=== PATIENT | male | born 1950 | race Caucasian/White ===

== ENCOUNTER 2019-12-27 05:36 | Inpatient (IN) ==
[2019-12-27] MEDS ORDERED: SODIUM CHLORIDE 0.9% 1000ML 1,000 ML IV SCH (06:00)
[2019-12-27 06:41] LABS: Basophils # (auto) 0.03 K/uL (0-0.2); Basophils % (auto) 0.1 %; Eosinophils # (auto) 0.07 K/uL (0-0.5); Eosinophils % (auto) 0.3 %; Hematocrit (blood only) 43.7 % (42-52); Immature Granulocytes # (auto) 0.06 K/uL (0.00-0.02); Immature Granulocytes % (auto) 0.3 %; Lymphocytes # (auto) 2.15 K/uL (1.2-3.4); Lymphocytes % (auto) 9.3 %; Mean Corpuscular Hemoglobin 31.3 pg (25-34); Mean Corpuscular Hgb Conc 34.3 g/dL (32-36); Mean Corpuscular Volume 91.2 fL (80-100); Mean Platelet Volume 9.1 fL (7.4-10.4); Monocytes # (auto) 2.22 K/uL (0.11-0.59); Monocytes % (auto) 9.6 %; Neutrophils # (auto) 18.58 K/uL (1.4-6.5); Neutrophils % (auto) 80.4 %; Platelet Count 307 K/uL (130-400); RDW Coefficient of Variation 13.9 % (11.5-14.5); RDW Standard Deviation 46.7 fL (36.4-46.3); Red Blood Count 4.79 M/uL (4.7-6.1); White Blood Count 23.11 K/uL (4.8-10.8)
[2019-12-27] MEDS ORDERED: AZITHROMYCIN 500 MG in DEXTROSE 5% 250 ML IV STA (06:49)
[2019-12-27] MEDS ORDERED: cefTRIAXone SODIUM 2,000 MG/70 ML BAG IV STA (06:49)
[2019-12-27 06:53] LABS: Partial Thromboplastin Time 29.1 Seconds (21.0-31.0); Prothrombin Time 10.9 Seconds (9.0-12.0)
[2019-12-27 06:58] LABS: Alanine Aminotransferase 39 U/L (12-78); Albumin Level 3.5 gm/dl (3.4-5.0); Aspartate Aminotransferase 20 U/L (15-37); BUN Creatinine Ratio 21.1 (10-20); Blood Urea Nitrogen 18 mg/dl (7-18); Calcium 9.1 mg/dl (8.5-10.1); Carbon Dioxide 28 mmol/L (21-32); Chloride 105 mmol/L (98-107); Creatinine Clr Calc Pharmacy 96.5 ml/min; Est GFR (African American) 102.1; Est GFR (Non-African American) 88.1; Glucose 123 mg/dl (70-99); Potassium 3.8 mmol/L (3.5-5.1); Sodium 139 mmol/L (136-145)
[2019-12-27 07:03] LABS: Albumin Globulin Ratio 0.8 (0.9-2); Alkaline Phosphatase 81 U/L (45-117); Bilirubin,Total 0.7 mg/dl (0.2-1); Globulin 4.2 gm/dl (2.5-4.0); Total Protein 7.7 gm/dl (6.4-8.2); Troponin I < 0.015 ng/ml (0-0.045)
[2019-12-27 07:28] LABS: Influenza A virus by PCR Neg for Influ A (Neg); Influenza B virus by PCR Neg for Influ B (Neg)
--- NOTE | 2019-12-27 07:30 | XRay Report ---
XR chest 1V portable CLINICAL HISTORY: SEPSIS COMPARISON STUDY: No previous studies for comparison. FINDINGS: The heart is enlarged. There is blunting of the left lateral costophrenic angle possibly re presenting a small effusion. There is mild pulmonary vascular congestion. There are airspace opacitie s in the right lung base, possibly representing a focal pneumonia. Clinical and radiographic follow-u p is recommended.[ IMPRESSION: 1. Cardiomegaly and suspected mild pulmonary vascular congestion 2. Right medial basilar airspace opacities, possibly representing a pneumonitis. Clinical and radiogr aphic follow-up is recommended. ACT 112: Negative or not required by law. Electronically signed by: Mario Alberto Latham M.D. 12/27/2019 7:29 AM
--- NOTE | 2019-12-27 07:49 | Emergency Department Note ---
History of Present Illness General Chief complaint: Fever Stated complaint: FEVER Time Seen by Provider: 12/27/19 05:48 Source: patient and RN notes reviewed Mode of arrival: ambulatory Limitations: no limitations History of Present Illness Provider complaint: Fever, cough Maximum Pain Intensity: 0 This patient is a 69-year-old male who presents emergency department with complaints of fever and cough. He states 4 days ago he began coughing which has been progressive. Last night he developed a fever to 101.5 degrees with chills. He denies any vomiting, chest pain but does admit to some shortness of breath. The cough is relatively nonproductive. Patient states he has had no known COVID exposures however he is a business planning manager for school students. Patient did take Tylenol at 11 PM last night. Patient states his was sick approximately 1 month ago and was tested for COVID at that time and was negative, but is currently asymptomatic Allergies Allergy/AdvReac Type Severity Reaction Status Date / Time No Known Allergies Allergy Unverified 12/27/19 07:12 Past Med/Surg History Medical History Hypercholesterolemia Social History Smoking Status: Current every day smoker Tobacco Type: Pipe Preferred Language: Maldivian Feels Safe at Home: Yes Review of Systems See HPI for pertinent positives & negatives. and A total of 10 systems reviewed and were otherwise negative Physical Exam Vital Signs Vital Signs - 24 hr 12/27/19 05:38 12/27/19 06:37 Temperature 37.2 C Temperature Source Oral Pulse Rate 75 Respiratory Rate 18 Respiratory Effort / Characteristics Non-Labored Respiratory Depth Normal Respiratory Pattern Regular Blood Pressure 181/86 H Blood Pressure Mean 117 Pulse Oximetry 98 98 Oxygen Delivery Method Room Air Room Air Sepsis Recent Fever Within 48 Hours Yes Sepsis New/Unexplained Change in Mental Status No Sepsis Action Taken by Nursing No Action Required Vital signs reviewed. Noted to be hypertensive. General: Somewhat ill-appearing 69 yo male, in no significant distress. HEENT: No scleral icterus, PERRLA, neck supple. Atraumatic. Cardiovascular: Regular rate and rhythm, no extra sounds. Pulmonary: Clear to auscultation bilaterally, normal work of breathing. Abdomen: Soft, nontender, nondistended, positive bowel sounds. Musculoskeletal: Atraumatic, no peripheral edema. Neurologic: Patient awake alert and oriented x 3 Skin: Warm, dry, no rash Course Administered Medications Discontinued Medications Sodium Chloride (Nss 1000ml) 1,000 mls @ 999 mls/hr IV .[id number] NICK Stop: 12/27/19 07:00 Last Admin: 12/27/19 06:42 Dose: 999 mls/hr Documented by: [id number] Ceftriaxone Sodium (Rocephin) 2,000 mg in 70 mls @ 140 mls/hr IV NOW STA Stop: 12/27/19 07:18 Last Admin: 12/27/19 07:12 Dose: 140 mls/hr Documented by: [id number] Medical Decision Making Differential Diagnosis Differential diagnosis: Etiologies such as viral syndrome, COVID, otitis, pharyngitis, pneumonia, influenza, meningitis, urinary tract infection, septic arthritis, soft tissue infectious process, intra-abdominal process, sepsis, bacteremia, as well as others were entertained. Medical Records Attestation: I reviewed the patient's medical records. Home Medications Current Medication List: was personally reviewed by me Laboratory Data Attestation: I reviewed the patient's lab results. Result diagrams: 12/27/19 06:21 12/27/19 06:21 Lab Results 12/27/19 12/27/19 12/27/19 Range/Units 06:21 06:21 06:21 WBC 23.11 H (4.8-10.8) K/uL RBC 4.79 (4.7-6.1) M/uL Hgb 15.0 (14.0-18.0) g/dL Hct 43.7 (42-52) % MCV 91.2 (80-100) fL MCH 31.3 (25-34) pg MCHC 34.3 (32-36) g/dL RDW Std Deviation 46.7 H (36.4-46.3) fL RDW Coeff of Tulio 13.9 (11.5-14.5) % Plt Count 307 (130-400) K/uL MPV 9.1 (7.4-10.4) fL Immature Gran % (Auto) 0.3 % Neut % (Auto) 80.4 % Lymph % (Auto) 9.3 % [place] % (Auto) 9.6 % Eos % (Auto) 0.3 % Baso % (Auto) 0.1 % Neut # (Auto) 18.58 H (1.4-6.5) K/uL Lymph # (Auto) 2.15 (1.2-3.4) K/uL [place] # (Auto) 2.22 H (0.11-0.59) K/uL Eos # (Auto) 0.07 (0-0.5) K/uL Baso # (Auto) 0.03 (0-0.2) K/uL Immature Gran # (Auto) 0.06 H (0.00-0.02) K/uL PT 10.9 (9.0-12.0) Seconds INR 1.0 (0.9-1.1) APTT 29.1 (21.0-31.0) Seconds PTT Ratio 1.0 Sodium 139 (136-145) mmol/L Potassium 3.8 (3.5-5.1) mmol/L Chloride 105 (98-107) mmol/L Carbon Dioxide 28 (21-32) mmol/L Anion Gap 6.0 (3-11) BUN 18 (7-18) mg/dl Creatinine 0.87 (0.6-1.4) mg/dl Est Cr Clr Drug Dosing 96.5 ml/min Est GFR ( Amer) 102.1 Est GFR (Non-Af Amer) 88.1 BUN/Creatinine Ratio 21.1 H (10-20) Glucose 123 H (70-99) mg/dl Lactate (0.4-2.0) mmol/L Calcium 9.1 (8.5-10.1) mg/dl Magnesium 2.0 (1.8-2.4) mg/dl Total Bilirubin 0.7 (0.2-1) mg/dl AST 20 (15-37) U/L ALT 39 (12-78) U/L Alkaline Phosphatase 81 (45-117) U/L Troponin I < 0.015 (0-0.045) ng/ml Total Protein 7.7 (6.4-8.2) gm/dl Albumin 3.5 (3.4-5.0) gm/dl Globulin 4.2 H (2.5-4.0) gm/dl Albumin/Globulin Ratio 0.8 L (0.9-2) COVID-19 Eval Order COVID-19 PCR (Negative) Influenza Type A (PCR) (Neg) Influenza Type B (PCR) (Neg) 12/27/19 12/27/19 12/27/19 Range/Units 06:21 06:37 06:37 WBC (4.8-10.8) K/uL RBC (4.7-6.1) M/uL Hgb (14.0-18.0) g/dL Hct (42-52) % MCV (80-100) fL MCH (25-34) pg MCHC (32-36) g/dL RDW Std Deviation (36.4-46.3) fL RDW Coeff of Tulio (11.5-14.5) % Plt Count (130-400) K/uL MPV (7.4-10.4) fL Immature Gran % (Auto) % Neut % (Auto) % Lymph % (Auto) % [place] % (Auto) % Eos % (Auto) % Baso % (Auto) % Neut # (Auto) (1.4-6.5) K/uL Lymph # (Auto) (1.2-3.4) K/uL [place] # (Auto) (0.11-0.59) K/uL Eos # (Auto) (0-0.5) K/uL Baso # (Auto) (0-0.2) K/uL Immature Gran # (Auto) (0.00-0.02) K/uL PT (9.0-12.0) Seconds INR (0.9-1.1) APTT (21.0-31.0) Seconds PTT Ratio Sodium (136-145) mmol/L Potassium (3.5-5.1) mmol/L Chloride (98-107) mmol/L Carbon Dioxide (21-32) mmol/L Anion Gap (3-11) BUN (7-18) mg/dl Creatinine (0.6-1.4) mg/dl Est Cr Clr Drug Dosing ml/min Est GFR ( Amer) Est GFR (Non-Af Amer) BUN/Creatinine Ratio (10-20) Glucose (70-99) mg/dl Lactate 2.2 H* (0.4-2.0) mmol/L Calcium (8.5-10.1) mg/dl Magnesium (1.8-2.4) mg/dl Total Bilirubin (0.2-1) mg/dl AST (15-37) U/L ALT (12-78) U/L Alkaline Phosphatase (45-117) U/L Troponin I (0-0.045) ng/ml Total Protein (6.4-8.2) gm/dl Albumin (3.4-5.0) gm/dl Globulin (2.5-4.0) gm/dl Albumin/Globulin Ratio (0.9-2) COVID-19 Eval Order Covid19 Done at [facility] COVID-19 PCR (Negative) Influenza Type A (PCR) Neg for Influ A (Neg) Influenza Type B (PCR) Neg for Influ B (Neg) 12/27/19 Range/Units 06:37 WBC (4.8-10.8) K/uL RBC (4.7-6.1) M/uL Hgb (14.0-18.0) g/dL Hct (42-52) % MCV (80-100) fL MCH (25-34) pg MCHC (32-36) g/dL RDW Std Deviation (36.4-46.3) fL RDW Coeff of Tulio (11.5-14.5) % Plt Count (130-400) K/uL MPV (7.4-10.4) fL Immature Gran % (Auto) % Neut % (Auto) % Lymph % (Auto) % [place] % (Auto) % Eos % (Auto) % Baso % (Auto) % Neut # (Auto) (1.4-6.5) K/uL Lymph # (Auto) (1.2-3.4) K/uL [place] # (Auto) (0.11-0.59) K/uL Eos # (Auto) (0-0.5) K/uL Baso # (Auto) (0-0.2) K/uL Immature Gran # (Auto) (0.00-0.02) K/uL PT (9.0-12.0) Seconds INR (0.9-1.1) APTT (21.0-31.0) Seconds PTT Ratio Sodium (136-145) mmol/L Potassium (3.5-5.1) mmol/L Chloride (98-107) mmol/L Carbon Dioxide (21-32) mmol/L Anion Gap (3-11) BUN (7-18) mg/dl Creatinine (0.6-1.4) mg/dl Est Cr Clr Drug Dosing ml/min Est GFR ( Amer) Est GFR (Non-Af Amer) BUN/Creatinine Ratio (10-20) Glucose (70-99) mg/dl Lactate (0.4-2.0) mmol/L Calcium (8.5-10.1) mg/dl Magnesium (1.8-2.4) mg/dl Total Bilirubin (0.2-1) mg/dl AST (15-37) U/L ALT (12-78) U/L Alkaline Phosphatase (45-117) U/L Troponin I (0-0.045) ng/ml Total Protein (6.4-8.2) gm/dl Albumin (3.4-5.0) gm/dl Globulin (2.5-4.0) gm/dl Albumin/Globulin Ratio (0.9-2) COVID-19 Eval Order COVID-19 PCR NEGATIVE (Negative) Influenza Type A (PCR) (Neg) Influenza Type B (PCR) (Neg) Imaging Data Radiologist's Impression: XR chest 1V portable CLINICAL HISTORY: SEPSIS COMPARISON STUDY: No previous studies for comparison. FINDINGS: The heart is enlarged. There is blunting of the left lateral costophrenic angle possibly representing a small effusion. There is mild pulmonary vascular congestion. There are airspace opacities in the right lung base, possibly representing a focal pneumonia. Clinical and radiographic follow- up is recommended.[ IMPRESSION: 1. Cardiomegaly and suspected mild pulmonary vascular congestion 2. Right medial basilar airspace opacities, possibly representing a pneumonitis. Clinical and radiographic follow-up is recommended. ACT 112: Negative or not required by law. Electronically signed by: Mario Alberto Latham M.D. 12/27/2019 7:29 AM ECG Data Attestation: I personally reviewed and interpreted this ECG as follows: Indication: + SOB/dyspnea Rate (beats per minute): 73 Rhythm: + normal sinus ECG Intervals/blocks: + Right Bundle branch block and + Normal QT-c ECG ST segments: + Normal ST segments and + repolarization abnormalities ECG Findings: no PACs and no PVCs Blood Pressure Blood Pressure Findings: Elevated blood pressure Blood Pressure Disposition: further management by hospitalist EITAN Narrative This patient was evaluated and appeared to be in no significant distress. IV access was obtained and laboratory work was drawn. An order for cardiac monitoring was placed and the patient is noted to be in a normal sinus rhythm at 73 bpm. IV fluids were established. Blood cultures were drawn. Patient was placed in isolation with a rapid COVID test requested. Chest x-ray reveals b ilateral pulmonary infiltrates to my interpretation. EKG reveals a right bundle branch block. Patient was medicated with IV ceftriaxone and a azithromycin. Patient's case was discussed with the hospitalist service who will evaluate the patient for admission and further management. Patient is aware of the plan and agrees. Impression & Plan Pneumonia, Elevated lactic acid level Discharge Plan Visit Data Chief Complaint: Fever Stated Complaint: FEVER ED Provider: Elle Bass Discharge Problem: Pneumonia, Elevated lactic acid level Forms Stand Alone Forms: [facility] Discharge Problem: Pneumonia Qualifiers: Pneumonia type: due to unspecified organism Laterality: bilateral Lung location: lower lobe of lung Qualified Code(s): J18.9 - Pneumonia, unspecified organism
--- NOTE | 2019-12-27 08:25 | History & Physical Report ---
Date of Service December 27, 2019 Assessment & Plan (1) Pneumonia: Clinical history, leukocytosis, chest x-ray consistent with pneumonia, community acquired. Did not meet criteria for SIRS / sepsis per current CMS criteria. SARS-CoV-2 PCR and influenza A/B PCR negative. Blood cultures obtained in ED. Check sputum culture if adequate specimen can be provided. Received azithromycin and ceftriaxone which will be continued. (2) COPD exacerbation: Secondary to pneumonia. Bronchodilators PRN. Add steroids if needed. (3) Elevated lactic acid level: Serum lactate 2.2, repeat 2.1. Has infection (pneumonia) but does not meet strict criteria for sepsis per current CMS criteria. (4) Hypertension: Amlodipine listed on admission med rec, but could not be confirmed by review of clinic records, Dr. Dominguez database, or discussion with pt's pharmacy. Continue valsartan. Follow and titrate Rx. (5) Sleep apnea: Continue CPAP. (6) DVT prophylaxis: SQ enoxaparin. Ambulate. (7) Discharge planning issues: Anticipated discharge to home. Medical follow-up with Dr. Donahue. Pulmonary Medicine follow-up with [facility]. History of Present Illness Chief Complaint: fever, cough, SOB Primary Care Provider: Alize Donahue DO 69 YO male followed by Dr. Murry in [place]. History of obstructive lung disease (asthma + COPD) and other problems as noted below. [place] well until 4 days prior to admission when he developed fever and cough. Symptoms worsened over past 24 hours. Now experiencing chills, malaise, worsening cough and dyspnea. Has some chest and left should discomfort with coughing. Tried acetaminophen and albuterol without significant improvement. No recent travel history. Drives school bus. No known COVID-19 exposure. He has had pneumococcal vaccination. He has not yet had influenza vaccination this season. Allergies Allergy/AdvReac Type Severity Reaction Status Date / Time No Known Allergies Allergy Unverified 12/27/19 07:12 Home Medications Home Medications Medication Instructions Recorded Confirmed Type acetaminophen [Tylenol] 325 mg PO QID PRN 12/27/19 12/27/19 History albuterol sulfate 2 puff INHALATION Q4H PRN 12/27/19 12/27/19 History atorvastatin 20 mg PO DAILY 12/27/19 12/27/19 History ipratropium-albuterol [Combivent 1 puff INHALATION DAILY 12/27/19 12/27/19 History Respimat] multivitamin 1 tab PO DAILY 12/27/19 12/27/19 History valsartan 80 mg PO DAILY 12/27/19 12/27/19 History Past Med/Surg History Medical History (Updated 12/27/19 @ 12:24 by Curly Quigley MD) Asthma COPD (chronic obstructive pulmonary disease) Hypercholesterolemia Hypertension Sleep apnea CPAP 7 cm Surgical History (Updated 12/27/19 @ 12:24 by Curly Quigley MD) Status post arthroscopy of left knee Status post hernia repair Status post nasal septoplasty Family History (Updated 12/27/19 @ 12:28 by Curly Quigley MD) Father Coronary heart disease Mother Stroke Cancer of uterus Grandfather (Maternal) Coronary heart disease Grandmother (Maternal) Coronary heart disease Brother Lung cancer Son Brain tumor Social History Smoking Status: Current every day smoker Tobacco Type: Pipe Second Hand Exposure: No; Do You Dip or Chew Tobacco: No; Tobacco Cessation Education Requested by Patient: No (declined) Hx Alcohol Use: No Hx Substance Use: No Preferred Language: Polish Dental Internship Required: No Beliefs That Will Affect Care: None Current Living Situation: Spouse Current Living Situation Comment: home with Other Information That Helps Us Care for You: No Feels Safe at Home: Yes Safety Concerns: Feels Safe At This Time Assistive Devices: None Review of Systems Constitutional: + fever, + chills and + malaise; no weight loss Eyes: no diplopia and no worsening vision Ear, Nose, Mouth, Throat: + nasal congestion; no sinus pain/pressure and no sore throat Respiratory: as per Subjective / HPI Cardiovascular: no chest pain, no palpitations and no edema Gastrointestinal: no nausea, no vomiting, no constipation, no diarrhea/loose stools, no blood in stools and no melena Musculoskeletal: + joint pain; no myalgia Integumentary: no rash and no new lesions Neurologic: no headache(s) Endocrine: no polydipsia and no polyuria Hematologic / Lymphatic: + easy bruising; no easy bleeding and no lymphadenopathy Physical Exam Physical Exam: VS- as noted Constitutional- well nourished; appear to be ill Eyes- PERRL, anicteric sclerae, conjunctivae normal ENMT- external ear and nose normal; oropharynx clear; dentures Neck- trachea midline; no thyromegaly Respiratory- no respiratory distress; rales right base; mild wheezing Cardiovascular- RRR, no murmur/gallop/rub appreciated; no JVD; no pretibial edema; normal capillary refill Chest- no abnormalities Abdomen- normal bowel sounds, soft, nontender, nondistended; no palpable masses or hepatosplenomegaly Musculoskeletal- no cyanosis Skin- warm & dry; normal color; no rashes Neurologic- no facial palsy; no dysarthria or aphasia; motor strength extremities grossly intact; patellar DTR's 2/2 bilaterally Psychiatric- alert, oriented x 3; normal affect Genitourinary- exam deferred Lymphatic- no cervical adenopathy Results & Data Results & Data ([facility]) Vital Signs (Past 12 Hours) Vital Signs 12/27/19 05:38 12/27/19 06:37 12/27/19 07:59 Temperature 37.2 C 37.5 C Pulse Rate 75 Pulse Rate [Apical] 69 Respiratory Rate 18 14 Blood Pressure 181/86 H Blood Pressure [Right Arm] 149/72 H Pulse Oximetry 98 98 95 12/27/19 09:25 12/27/19 11:02 12/27/19 12:03 Temperature 37.1 C 36.5 C Pulse Rate Pulse Rate [Apical] 76 80 55 L Respiratory Rate 20 20 20 Blood Pressure Blood Pressure [Right Arm] 154/78 H 161/68 H 147/65 H Pulse Oximetry 95 95 96 Laboratory Results Laboratory Results - last 24 hr 12/27/19 12/27/19 12/27/19 06:21 06:21 06:21 WBC 23.11 H RBC 4.79 Hgb 15.0 Hct 43.7 MCV 91.2 MCH 31.3 MCHC 34.3 RDW Std Deviation 46.7 H RDW Coeff of Tulio 13.9 Plt Count 307 MPV 9.1 Immature Gran % (Auto) 0.3 Neut % (Auto) 80.4 Lymph % (Auto) 9.3 [place] % (Auto) 9.6 Eos % (Auto) 0.3 Baso % (Auto) 0.1 Neut # (Auto) 18.58 H Lymph # (Auto) 2.15 [place] # (Auto) 2.22 H Eos # (Auto) 0.07 Baso # (Auto) 0.03 Immature Gran # (Auto) 0.06 H PT 10.9 INR 1.0 APTT 29.1 PTT Ratio 1.0 Sodium 139 Potassium 3.8 Chloride 105 Carbon Dioxide 28 Anion Gap 6.0 BUN 18 Creatinine 0.87 Est Cr Clr Drug Dosing 96.5 Est GFR ( Amer) 102.1 Est GFR (Non-Af Amer) 88.1 BUN/Creatinine Ratio 21.1 H Glucose 123 H Lactate Calcium 9.1 Magnesium 2.0 Total Bilirubin 0.7 AST 20 ALT 39 Alkaline Phosphatase 81 Troponin I < 0.015 NT-Pro-B Natriuret Pep Total Protein 7.7 Albumin 3.5 Globulin 4.2 H Albumin/Globulin Ratio 0.8 L Urine Color Urine Appearance Urine pH Ur Specific [place] Urine Protein Urine Glucose (UA) Urine Ketones Urine Blood Urine Nitrite Urine Bilirubin Urine Urobilinogen Ur Leukocyte Esterase COVID-19 Eval Order COVID-19 PCR Influenza Type A (PCR) Influenza Type B (PCR) 12/27/19 12/27/19 12/27/19 06:21 06:37 06:37 WBC RBC Hgb Hct MCV MCH MCHC RDW Std Deviation RDW Coeff of Tulio Plt Count MPV Immature Gran % (Auto) Neut % (Auto) Lymph % (Auto) [place] % (Auto) Eos % (Auto) Baso % (Auto) Neut # (Auto) Lymph # (Auto) [place] # (Auto) Eos # (Auto) Baso # (Auto) Immature Gran # (Auto) PT INR APTT PTT Ratio Sodium Potassium Chloride Carbon Dioxide Anion Gap BUN Creatinine Est Cr Clr Drug Dosing Est GFR ( Amer) Est GFR (Non-Af Amer) BUN/Creatinine Ratio Glucose Lactate 2.2 H* Calcium Magnesium Total Bilirubin AST ALT Alkaline Phosphatase Troponin I NT-Pro-B Natriuret Pep Total Protein Albumin Globulin Albumin/Globulin Ratio Urine Color Urine Appearance Urine pH Ur Specific [place] Urine Protein Urine Glucose (UA) Urine Ketones Urine Blood Urine Nitrite Urine Bilirubin Urine Urobilinogen Ur Leukocyte Esterase COVID-19 Eval Order Covid19 Done at [facility] COVID-19 PCR Influenza Type A (PCR) Neg for Influ A Influenza Type B (PCR) Neg for Influ B 12/27/19 12/27/19 12/27/19 06:37 08:31 08:32 WBC RBC Hgb Hct MCV MCH MCHC RDW Std Deviation RDW Coeff of Tulio Plt Count MPV Immature Gran % (Auto) Neut % (Auto) Lymph % (Auto) [place] % (Auto) Eos % (Auto) Baso % (Auto) Neut # (Auto) Lymph # (Auto) [place] # (Auto) Eos # (Auto) Baso # (Auto) Immature Gran # (Auto) PT INR APTT PTT Ratio Sodium Potassium Chloride Carbon Dioxide Anion Gap BUN Creatinine Est Cr Clr Drug Dosing Est GFR ( Amer) Est GFR (Non-Af Amer) BUN/Creatinine Ratio Glucose Lactate 2.1 H* Calcium Magnesium Total Bilirubin AST ALT Alkaline Phosphatase Troponin I NT-Pro-B Natriuret Pep 117 Total Protein Albumin Globulin Albumin/Globulin Ratio Urine Color Urine Appearance Urine pH Ur Specific [place] Urine Protein Urine Glucose (UA) Urine Ketones Urine Blood Urine Nitrite Urine Bilirubin Urine Urobilinogen Ur Leukocyte Esterase COVID-19 Eval Order COVID-19 PCR NEGATIVE Influenza Type A (PCR) Influenza Type B (PCR) 12/27/19 09:40 WBC RBC Hgb Hct MCV MCH MCHC RDW Std Deviation RDW Coeff of Tulio Plt Count MPV Immature Gran % (Auto) Neut % (Auto) Lymph % (Auto) [place] % (Auto) Eos % (Auto) Baso % (Auto) Neut # (Auto) Lymph # (Auto) [place] # (Auto) Eos # (Auto) Baso # (Auto) Immature Gran # (Auto) PT INR APTT PTT Ratio Sodium Potassium Chloride Carbon Dioxide Anion Gap BUN Creatinine Est Cr Clr Drug Dosing Est GFR ( Amer) Est GFR (Non-Af Amer) BUN/Creatinine Ratio Glucose Lactate Calcium Magnesium Total Bilirubin AST ALT Alkaline Phosphatase Troponin I NT-Pro-B Natriuret Pep Total Protein Albumin Globulin Albumin/Globulin Ratio Urine Color Yellow Urine Appearance Clear Urine pH 6.0 Ur Specific [place] 1.022 Urine Protein Negative Urine Glucose (UA) Negative Urine Ketones Negative Urine Blood Negative Urine Nitrite Negative Urine Bilirubin Negative Urine Urobilinogen Negative Ur Leukocyte Esterase Negative COVID-19 Eval Order COVID-19 PCR Influenza Type A (PCR) Influenza Type B (PCR) Diagnostic Findings PORTABLE CHEST X-RAY Reviewed by the undersigned and formally interpreted by Radiology: FINDINGS: The heart is enlarged. There is blunting of the left lateral costophrenic angle possibly representing a small effusion. There is mild pulmonary vascular congestion. There are airspace opacities in the right lung base, possibly representing a focal pneumonia. Clinical and radiographic follow-up is recommended.[ IMPRESSION: 1. Cardiomegaly and suspected mild pulmonary vascular congestion 2. Right medial basilar airspace opacities, possibly representing a pneumonitis. Clinical and radiographic follow-up is recommended. Electronically signed by: Mario Alberto Latham M.D. 12/27/2019 7:29 AM ECG Additional Comments: EKG performed at 0603 reviewed and demonstrated NSR at 73 / min, right bundle branch block, no acute changes. Code Status & VTE Plan Code Status Discussed with patient and his . No living will. Full code. VTE Prophylaxis Plan VTE Prophylaxis will be ordered: Yes (1) Pneumonia Laterality: bilateral Lung location: lower lobe of lung Pneumonia type: due to unspecified organism Qualified Code(s): J18.9 - Pneumonia, unspecified organism
[2019-12-27 10:12] LABS: Appearance Urine Clear (Clear); Bilirubin Urine Negative (Negative); Blood Urine Negative (Negative); Color Urine Yellow; Glucose Urine UA Negative (Negative); Ketones Urine Negative (Negative); Leukocyte Esterase Urine Negative (Negative); Nitrite Urine Negative (Negative); Protein Urine Negative (Negative); Specific Gravity Urine 1.022 (1.000-1.030); Urobilinogen Urine Negative (Negative)
[2019-12-27] MEDS: SODIUM CHLORIDE 0.9% 1000ML 1,000 ML IV SCH ×3 (10:28→20:56)
[2019-12-27] MEDS ORDERED: ALBUTEROL HFA 8 GM INHALER INH PRN (12:07)
[2019-12-27] MEDS ORDERED: IPRATROPIUM BROMIDE/ALBUTEROL respimat INH INH SCH (12:07)
[2019-12-27] MEDS ORDERED: ACETAMINOPHEN 325 MG TAB PO PRN (12:30)
[2019-12-27] MEDS: IPRATROPIUM BROMIDE HFA INHALER INH SCH (12:55)
[2019-12-27] MEDS: ALBUTEROL HFA 8 GM INHALER INH SCH (12:55)
[2019-12-27] MEDS ORDERED: ALBUTEROL 0.083% NEBU SOLN 3 ML VIAL NEB PRN (13:10)
[2019-12-27] MEDS: ATORVASTATIN 20 MG TAB PO SCH (13:50)
[2019-12-27] MEDS: VALSARTAN 80 MG TAB PO SCH (13:50)
[2019-12-27] MEDS: ENOXAPARIN INJ 40 MG/0.4 ML SYR SQ SCH (22:01)
[2019-12-28] MEDS: SODIUM CHLORIDE 0.9% 1000ML 1,000 ML IV SCH ×3 (03:34→17:12)
[2019-12-28] MEDS: cefTRIAXone SODIUM 2,000 MG in DEXTROSE 5% 50 ML IV SCH ×2 (05:30→05:33)
--- NOTE | 2019-12-28 05:42 | Electrocardiogram Report ---
Test Reason : Blood Pressure : / mmHG Vent. Rate : 073 BPM Atrial Rate : 073 BPM P-R Int : 184 ms QRS Dur : 132 ms QT Int : 406 ms P-R-T Axes : 061 037 021 degrees QTc Int : 447 ms Normal sinus rhythm Right bundle branch block Abnormal ECG No previous ECGs available Confirmed by George Lorenzo [id number] on 12/28/2019 5:41:49 AM Referred By: REFERRED SELF Confirmed By:George Lorenzo
[2019-12-28] MEDS ORDERED: LEVALBUTEROL HCL 0.63 MG/3 ML NEB NEB PRN (07:03)
[2019-12-28] MEDS: ALBUTEROL HFA 8 GM INHALER INH SCH (07:16)
[2019-12-28] MEDS: IPRATROPIUM BROMIDE HFA INHALER INH SCH (07:16)
[2019-12-28 07:25] LABS: Basophils # (auto) 0.03 K/uL (0-0.2); Basophils % (auto) 0.2 %; Eosinophils # (auto) 0.08 K/uL (0-0.5); Eosinophils % (auto) 0.5 %; Hematocrit (blood only) 39.2 % (42-52); Hemoglobin 13.3 g/dL (14.0-18.0); Immature Granulocytes # (auto) 0.04 K/uL (0.00-0.02); Immature Granulocytes % (auto) 0.2 %; Lymphocytes # (auto) 4.01 K/uL (1.2-3.4); Lymphocytes % (auto) 23.7 %; Mean Corpuscular Hemoglobin 30.6 pg (25-34); Mean Corpuscular Hgb Conc 33.9 g/dL (32-36); Mean Corpuscular Volume 90.1 fL (80-100); Mean Platelet Volume 8.8 fL (7.4-10.4); Monocytes # (auto) 1.72 K/uL (0.11-0.59); Monocytes % (auto) 10.2 %; Neutrophils # (auto) 11.01 K/uL (1.4-6.5); Neutrophils % (auto) 65.2 %; Platelet Count 265 K/uL (130-400); RDW Coefficient of Variation 13.6 % (11.5-14.5); RDW Standard Deviation 45.1 fL (36.4-46.3); Red Blood Count 4.35 M/uL (4.7-6.1); White Blood Count 16.89 K/uL (4.8-10.8)
[2019-12-28 07:53] LABS: Calcium 8.6 mg/dl (8.5-10.1); Creatinine Clr Calc Pharmacy 118.3 ml/min; Est GFR (Non-African American) 95.7; Magnesium 2.2 mg/dl (1.8-2.4); Potassium 3.8 mmol/L (3.5-5.1)
[2019-12-28] MEDS: VALSARTAN 80 MG TAB PO SCH (08:29)
[2019-12-28] MEDS: AZITHROMYCIN 250 MG TAB PO SCH (08:29)
[2019-12-28] MEDS: ATORVASTATIN 20 MG TAB PO SCH (08:29)
--- NOTE | 2019-12-28 10:50 | Cardiology Consultation ---
Date of Consultation December 28, 2019 Assessment & Plan (1) PAF (paroxysmal atrial fibrillation): (2) Pneumonia: (3) COPD exacerbation: This patient had one very brief episode of atrial fibrillation in the setting of pneumonia. He has no significant cardiac history. Although his David Vascor is 2, I believe in this setting the risk versus benefit of long-term anticoagulation would favor conservative management with aspirin only. I will obtain an echocardiogram which will be helpful in this setting. For now I believe the patient is okay on DVT prophylaxis and aspirin. History of Present Illness Attending Physician: Curly Quigley MD History of Present Illness This is a 69-year-old male patient with a history of COPD, mild essential hypertension and sleep apnea who has been admitted with pneumonia. He has no prior history of heart disease. He denies myocardial infarction, angina, congestive heart failure or cardiac arrhythmias. He also has no prior history of strokes. After admission he had one very brief episode of rate controlled atrial fibrillation but lasted for approximately an hour or 2 and then he returned to sinus rhythm. He is currently in sinus rhythm during my interview today. He has no ongoing cardiac complaints. After hospital admission he is feeling much improved. Allergies Allergy/AdvReac Type Severity Reaction Status Date / Time No Known Allergies Allergy Unverified 12/27/19 07:12 Home Medications Home Medications Medication Instructions Recorded Confirmed Type acetaminophen [Tylenol] 325 mg PO QID PRN 12/27/19 12/27/19 History albuterol sulfate 2 puff INHALATION Q4H PRN 12/27/19 12/27/19 History atorvastatin 20 mg PO DAILY 12/27/19 12/27/19 History ipratropium-albuterol [Combivent 1 puff INHALATION DAILY 12/27/19 12/27/19 History Respimat] multivitamin 1 tab PO DAILY 12/27/19 12/27/19 History valsartan 80 mg PO DAILY 12/27/19 12/27/19 History Patient History Medical History Asthma COPD (chronic obstructive pulmonary disease) Hypercholesterolemia Hypertension Sleep apnea CPAP 7 cm Surgical History Status post arthroscopy of left knee Status post hernia repair Status post nasal septoplasty Family History Father Coronary heart disease Mother Stroke Cancer of uterus Grandfather (Maternal) Coronary heart disease Grandmother (Maternal) Coronary heart disease Brother Lung cancer Son Brain tumor Social History Smoking Status: Current every day smoker Tobacco Type: Pipe Second Hand Exposure: No; Do You Dip or Chew Tobacco: No; Tobacco Cessation Education Requested by Patient: No (declined) Hx Alcohol Use: No Hx Substance Use: No Preferred Language: [employer] Test Technician Required: No Beliefs That Will Affect Care: None Current Living Situation: Spouse Current Living Situation Comment: home with Other Information That Helps Us Care for You: No Feels Safe at Home: Yes Safety Concerns: Feels Safe At This Time Assistive Devices: None Review of Systems Review of Systems: All systems reviewed & are unremarkable except as noted in HPI & below Nothing additional to add. Physical Exam Physical Exam: General: no acute distress and stated age Head: normocephalic, no masses, lesions, tenderness or abnormalities Eyes: conjunctiva are pink and non-injected, sclera clear Neck: supple, no adenopathy, no bruits, normal jugular venous pulse, no hepatojugular reflux Chest: normal shape and normal respiratory effort Lungs: clear to auscultation and percussion Cardiac Exam: - regular rate & rhythm, no murmurs gallops or rubs - normal S1, normal S2 Pulses: 2(+) throughout Abdomen: abdomen soft, non-tender, no abnormal masses and no hepatosplenomegaly Musculoskeletal: no gait disturbance, no joint inflammation, no deforming arthritis Extremities: no edema and no cyanosis Neuro: grossly normal exam Results & Data ([facility]) Vital Signs (Past 12 Hours) Vital Signs Temp Pulse Pulse Resp BP Pulse Ox 12/28/19 09:23 65 12/28/19 08:07 36.7 C 61 18 153/89 H 94 12/28/19 07:19 61 18 94 12/28/19 04:26 36.4 C L 99/60 L 12/28/19 04:00 37.6 C H 71 18 165/74 H 92 12/28/19 03:39 62 16 90 12/28/19 00:32 82 Laboratory Results Laboratory Results - last 24 hr 12/28/19 12/28/1912/27/20 07:11 07:11 07:11 WBC 16.89 H RBC 4.35 L Hgb 13.3 L Hct 39.2 L MCV 90.1 MCH 30.6 MCHC 33.9 RDW Std Deviation 45.1 RDW Coeff of Tulio 13.6 Plt Count 265 MPV 8.8 Immature Gran % (Auto) 0.2 Neut % (Auto) 65.2 Lymph % (Auto) 23.7 [place] % (Auto) 10.2 Eos % (Auto) 0.5 Baso % (Auto) 0.2 Neut # (Auto) 11.01 H Lymph # (Auto) 4.01 H [place] # (Auto) 1.72 H Eos # (Auto) 0.08 Baso # (Auto) 0.03 Immature Gran # (Auto) 0.04 H Sodium Cancelled Potassium Cancelled Chloride Cancelled Carbon Dioxide Cancelled Anion Gap Cancelled BUN Cancelled Creatinine Cancelled Est Cr Clr Drug Dosing Cancelled Est GFR ( Amer) Cancelled Est GFR (Non-Af Amer) Cancelled BUN/Creatinine Ratio Cancelled Glucose Cancelled Lactate Calcium Cancelled Magnesium Procalcitonin 0.15 12/28/19 12/28/19 07:11 07:11 WBC RBC Hgb Hct MCV MCH MCHC RDW Std Deviation RDW Coeff of Tulio Plt Count MPV Immature Gran % (Auto) Neut % (Auto) Lymph % (Auto) [place] % (Auto) Eos % (Auto) Baso % (Auto) Neut # (Auto) Lymph # (Auto) [place] # (Auto) Eos # (Auto) Baso # (Auto) Immature Gran # (Auto) Sodium 139 Potassium 3.8 Chloride 109 H Carbon Dioxide 22 Anion Gap 8.0 BUN 14 Creatinine 0.71 Est Cr Clr Drug Dosing 118.3 Est GFR ( Amer) 111.0 Est GFR (Non-Af Amer) 95.7 BUN/Creatinine Ratio 20.0 Glucose 107 H Lactate 1.3 Calcium 8.6 Magnesium 2.2 Procalcitonin Medications Administered Current Inpatient Medications Acetaminophen (Acetaminophen 325 Mg Tab) 650 mg PO Q4H PRN PRN Reason: pain/fever Stop: 01/26/20 12:29 Albuterol (Albuterol Hfa 8 Gm Inhaler) 2 puffs INH Q4R PRN PRN Reason: wheezing Stop: 01/26/20 12:06 Albuterol (Albuterol Hfa 8 Gm Inhaler) 1 puffs INH QDR [facility]; Protocol Stop: 01/26/20 12:29 Last Admin: 12/28/19 07:16 Dose: 1 puffs Documented by: Atorvastatin Calcium (Atorvastatin 20 Mg Tab) 20 mg PO DAILY [facility] Stop: 01/26/20 12:29 Last Admin: 12/28/19 08:29 Dose: 20 mg Documented by: Azithromycin (Azithromycin 250 Mg Tab) 500 mg PO QAM [facility] Stop: 01/04/20 08:59 Last Admin: 12/28/19 08:29 Dose: 500 mg Documented by: Enoxaparin Sodium (Enoxaparin Inj 40 Mg/0.4 Ml Syr) 40 mg SQ HS [facility] Stop: 01/26/20 20:59 Last Admin: 12/27/19 22:01 Dose: 40 mg Documented by: Sodium Chloride (Nss 1000ml) 1,000 mls @ 150 mls/hr IV .Q6H40M [facility] Stop: 01/26/20 08:14 Last Admin: 12/28/19 10:21 Dose: 150 mls/hr Documented by: Ceftriaxone Sodium 2,000 mg/ (Dextrose) 50 mls @ 100 mls/hr IV DAILY@06 [facility]; Protocol Stop: 01/04/20 05:59 Last Infusion: 12/28/19 06:11 Dose: Infused Documented by: Influenza Virus Vaccine (Influenza Vaccine High Dose 65+ 0.5 Ml Syr) 0.5 ml IM .ONCE ONE Stop: 01/02/20 12:28 Ipratropium [place] (Ipratropium [place] Hfa Inhaler) 1 puffs INH QDR [facility]; Protocol Stop: 01/26/20 12:29 Last Admin: 12/28/19 07:16 Dose: 1 puffs Documented by: Levalbuterol HCl (Levalbuterol Hcl 0.63 Mg/3 Ml Neb) 0.63 mg NEB Q6H PRN PRN Reason: Wheezing Stop: 01/27/20 07:02 Valsartan (Valsartan 80 Mg Tab) 80 mg PO DAILY [facility] Stop: 01/26/20 12:29 Last Admin: 12/28/19 08:29 Dose: 80 mg Documented by: (1) Pneumonia Laterality: bilateral Lung location: lower lobe of lung Pneumonia type: due to unspecified organism Qualified Code(s): J18.9 - Pneumonia, unspecified organism
[2019-12-28] MEDS: ENOXAPARIN INJ 40 MG/0.4 ML SYR SQ SCH (21:30)
--- NOTE | 2019-12-28 22:23 | Electrocardiogram Report ---
Test Reason : Blood Pressure : / mmHG Vent. Rate : 066 BPM Atrial Rate : 416 BPM P-R Int : 000 ms QRS Dur : 134 ms QT Int : 388 ms P-R-T Axes : 000 019 -04 degrees QTc Int : 406 ms Atrial fibrillation Right bundle branch block Abnormal ECG When compared with ECG of 27-DEC-2019 06:03, Atrial fibrillation has replaced Sinus rhythm Confirmed by George Lorenzo ([id number]) on 12/28/2019 10:22:58 PM Referred By: REFERRED SELF Confirmed By:George Lorenzo
--- NOTE | 2019-12-28 22:39 | Electrocardiogram Report ---
Test Reason : Blood Pressure : / mmHG Vent. Rate : 059 BPM Atrial Rate : 059 BPM P-R Int : 190 ms QRS Dur : 138 ms QT Int : 452 ms P-R-T Axes : 054 032 026 degrees QTc Int : 447 ms Sinus bradycardia with Premature atrial complexes Right bundle branch block Abnormal ECG When compared with ECG of 28-DEC-2019 00:22, Sinus rhythm has replaced Atrial fibrillation Confirmed by George Lorenzo ([id number]) on 12/28/2019 10:39:15 PM Referred By: REFERRED SELF Confirmed By:George Lorenzo
--- NOTE | 2019-12-28 23:04 | Hospitalist Progress Note ---
Date of Service December 28, 2019 Assessment & Plan (1) Pneumonia: Clinical history, leukocytosis, chest x-ray consistent with pneumonia, community acquired. Did not meet criteria for SIRS / sepsis per current CMS criteria. SARS-CoV-2 PCR and influenza A/B PCR negative. Blood cultures obtained in ED. Check sputum culture if adequate specimen can be provided. Received azithromycin and ceftriaxone in ED which are being continued. (2) COPD exacerbation: Secondary to pneumonia. Bronchodilators PRN. Add steroids if needed. (3) Elevated lactic acid level: Serum lactate 2.2, repeat 2.1. Has infection (pneumonia) but does not meet strict criteria for sepsis per current CMS criteria. Repeat lactate this morning 1.3. (4) Hypertension: Amlodipine listed on admission med rec, but could not be confirmed by review of clinic records, Dr. Dominguez database, or discussion with pt's pharmacy. Continue valsartan. Follow and titrate Rx. (5) Sleep apnea: Continue CPAP. (6) Atrial flutter, paroxysmal: Paroxysmal atrial flutter with variable conduction in setting of acute illness. Asymptomatic. Lytes normal. Check TSH. Cardiology consulted. Echo showed normal atrial size, normal LV wall motion and function. [id number] = 2. Antithrombotic therapy with aspirin recommended. (7) DVT prophylaxis: SQ enoxaparin. Ambulate. (8) Discharge planning issues: Anticipated discharge to home. Medical follow-up with Dr. Donahue. Pulmonary Medicine follow-up with [facility]. Admission and Anticipated Discharge Date Admission Date: December 27, 2019 Subjective Recheck for pneumonia and other problems. Patient seen in their room around 0920. Feels better. Fever, chills, cough, SOB improved. Paroxysmal atrial flutter with variable conduction. No prior history of arrhythmias. No associated chest pain or palpitations. Converted spontaneously to NSR. Review of Systems: Constitutional- no fever. Cardiac- as noted above. Pulmonary- as noted above. GI- no nausea, vomiting, diarrhea, melena, hematochezia. - no urinary symptoms. Otherwise, as noted above. Physical Exam Constitutional: no acute distress Respiratory: no respiratory distress Auscultation: + rales (right base) Cardiovascular: Rate/Rhythm: regular rate and regular rhythm Heart Sounds: no gallop, no murmur and no cardiac rub Vessels: no JVD Extremities: no calf tenderness and no edema Gastrointestinal (Abdomen): normal bowel sounds, soft, nontender, no hepatosplenomegaly Musculoskeletal: Extremities: no cyanosis Skin: no rashes, warm and dry Psychiatric: Orientation: alert and oriented x 3 Results & Data Results & Data ([facility]) Vital Signs (Past 12 Hours) Vital Signs Temp Pulse Pulse Resp BP BP Pulse Ox 12/28/19 20:03 36.8 C 59 L 16 166/81 H 95 12/28/19 16:00 36.6 C 58 L 20 154/79 H 95 12/28/19 11:21 36.8 C 56 L 18 154/83 H 95 Laboratory Results Laboratory Results - last 24 hr 12/28/19 12/28/19 12/28/19 07:11 07:11 07:11 WBC 16.89 H RBC 4.35 L Hgb 13.3 L Hct 39.2 L MCV 90.1 MCH 30.6 MCHC 33.9 RDW Std Deviation 45.1 RDW Coeff of Tulio 13.6 Plt Count 265 MPV 8.8 Immature Gran % (Auto) 0.2 Neut % (Auto) 65.2 Lymph % (Auto) 23.7 [place] % (Auto) 10.2 Eos % (Auto) 0.5 Baso % (Auto) 0.2 Neut # (Auto) 11.01 H Lymph # (Auto) 4.[address] [place] # (Auto) 1.72 H Eos # (Auto) 0.08 Baso # (Auto) 0.03 Immature Gran # (Auto) 0.04 H Sodium Cancelled Potassium Cancelled Chloride Cancelled Carbon Dioxide Cancelled Anion Gap Cancelled BUN Cancelled Creatinine Cancelled Est Cr Clr Drug Dosing Cancelled Est GFR ( Amer) Cancelled Est GFR (Non-Af Amer) Cancelled BUN/Creatinine Ratio Cancelled Glucose Cancelled Lactate Calcium Cancelled Magnesium Procalcitonin 0.15 12/28/19 12/28/19 07:11 07:11 WBC RBC Hgb Hct MCV MCH MCHC RDW Std Deviation RDW Coeff of Tulio Plt Count MPV Immature Gran % (Auto) Neut % (Auto) Lymph % (Auto) [place] % (Auto) Eos % (Auto) Baso % (Auto) Neut # (Auto) Lymph # (Auto) [place] # (Auto) Eos # (Auto) Baso # (Auto) Immature Gran # (Auto) Sodium 139 Potassium 3.8 Chloride 109 H Carbon Dioxide 22 Anion Gap 8.0 BUN 14 Creatinine 0.71 Est Cr Clr Drug Dosing 118.3 Est GFR ( Amer) 111.0 Est GFR (Non-Af Amer) 95.7 BUN/Creatinine Ratio 20.0 Glucose 107 H Lactate 1.3 Calcium 8.6 Magnesium 2.2 Procalcitonin (1) Pneumonia Laterality: bilateral Lung location: lower lobe of lung Pneumonia type: due to unspecified organism Qualified Code(s): J18.9 - Pneumonia, unspecified organism
[2019-12-29] MEDS: SODIUM CHLORIDE 0.9% 1000ML 1,000 ML IV SCH (00:52)
[2019-12-29 07:28] LABS: Hematocrit (blood only) 37.1 % (42-52); Hemoglobin 12.6 g/dL (14.0-18.0); Mean Corpuscular Hemoglobin 30.4 pg (25-34); Mean Corpuscular Volume 89.4 fL (80-100); Platelet Count 272 K/uL (130-400); RDW Coefficient of Variation 13.6 % (11.5-14.5); RDW Standard Deviation 44.9 fL (36.4-46.3); Red Blood Count 4.15 M/uL (4.7-6.1); White Blood Count 14.62 K/uL (4.8-10.8)
[2019-12-29] MEDS: ALBUTEROL HFA 8 GM INHALER INH SCH (07:41)
[2019-12-29] MEDS: IPRATROPIUM BROMIDE HFA INHALER INH SCH (07:42)
[2019-12-29] MEDS: VALSARTAN 80 MG TAB PO SCH (07:44)
[2019-12-29] MEDS: ATORVASTATIN 20 MG TAB PO SCH (07:44)
[2019-12-29] MEDS: AZITHROMYCIN 250 MG TAB PO SCH (07:44)
[2019-12-29 08:05] LABS: BUN Creatinine Ratio 21.7 (10-20); Calcium 8.9 mg/dl (8.5-10.1); Creatinine Clr Calc Pharmacy 127.2 ml/min; Est GFR (African American) 114.3; Est GFR (Non-African American) 98.6; Potassium 3.9 mmol/L (3.5-5.1)
[2019-12-29 08:15] LABS: Thyroid Stimulating Hormone 1.77 uIu/ml (0.300-4.500)
--- NOTE | 2019-12-29 12:11 | Cardiology Progress Note ---
Date of Service December 29, 2019 Assessment & Plan (1) PAF (paroxysmal atrial fibrillation): (2) Pneumonia: (3) COPD exacerbation: Reviewed the patient's telemetry over the past 24 hours. He has had no additional episodes of PAT or PAF. He had a very short run of PAF in the setting of acute pneumonia and therefore I do not believe any additional treatment is indicated at this time except for aspirin 81 mg daily. After discharge, he can return to his primary care physician for further medical care and guidance. Admission and Anticipated Discharge Date Admission Date: December 27, 2019 Subjective The patient had an uneventful night. He feels well and would like to go home. Review of Systems Review of Systems: All systems reviewed & are unremarkable except as noted in HPI & below Nothing additional to add. Physical Exam Physical Exam: General: no acute distress and stated age Head: normocephalic, no masses, lesions, tenderness or abnormalities Eyes: conjunctiva are pink and non-injected, sclera clear Neck: supple, no adenopathy, no bruits, normal jugular venous pulse, no hepatojugular reflux Chest: normal shape and normal respiratory effort Lungs: clear to auscultation and percussion Cardiac Exam: - regular rate & rhythm, no murmurs gallops or rubs - normal S1, normal S2 Pulses: 2(+) throughout Abdomen: abdomen soft, non-tender, no abnormal masses and no hepatosplenomegaly Musculoskeletal: no gait disturbance, no joint inflammation, no deforming arthritis Extremities: no edema and no cyanosis Neuro: grossly normal exam Results & Data ([facility]) Vital Signs (Past 12 Hours) Vital Signs Temp Pulse Pulse Pulse Resp BP BP 12/29/19 08:16 71 12/29/19 07:45 63 16 12/29/19 07:28 36.9 C 60 18 170/88 H 12/29/19 03:00 36.7 C 58 L 20 157/78 H Pulse Ox 12/29/19 08:16 12/29/19 07:45 97 12/29/19 07:28 95 12/29/19 03:00 94 Laboratory Results Laboratory Results - last 24 hr 12/29/19 12/29/19 07:16 07:16 WBC 14.62 H RBC 4.15 L Hgb 12.6 L Hct 37.1 L MCV 89.4 MCH 30.4 MCHC 34.0 RDW Std Deviation 44.9 RDW Coeff of Tulio 13.6 Plt Count 272 MPV 9.0 Sodium 139 Potassium 3.9 Chloride 110 H Carbon Dioxide 22 Anion Gap 7.0 BUN 14 Creatinine 0.66 Est Cr Clr Drug Dosing 127.2 Est GFR ( Amer) 114.3 Est GFR (Non-Af Amer) 98.6 BUN/Creatinine Ratio 21.7 H Glucose 111 H Calcium 8.9 TSH 1.770 Medications Administered Current Inpatient Medications Acetaminophen (Acetaminophen 325 Mg Tab) 650 mg PO Q4H PRN PRN Reason: pain/fever Stop: 01/26/20 12:29 Albuterol (Albuterol Hfa 8 Gm Inhaler) 2 puffs INH Q4R PRN PRN Reason: wheezing Stop: 01/26/20 12:06 Albuterol (Albuterol Hfa 8 Gm Inhaler) 1 puffs INH QDR [facility]; Protocol Stop: 01/26/20 12:29 Last Admin: 12/29/19 07:41 Dose: 1 puffs Documented by: Atorvastatin Calcium (Atorvastatin 20 Mg Tab) 20 mg PO DAILY [facility] Stop: 01/26/20 12:29 Last Admin: 12/29/19 07:44 Dose: 20 mg Documented by: Azithromycin (Azithromycin 250 Mg Tab) 500 mg PO QAM [facility] Stop: 01/04/20 08:59 Last Admin: 12/29/19 07:44 Dose: 500 mg Documented by: Enoxaparin Sodium (Enoxaparin Inj 40 Mg/0.4 Ml Syr) 40 mg SQ HS [facility] Stop: 01/26/20 20:59 Last Admin: 12/28/19 21:30 Dose: 40 mg Documented by: Ceftriaxone Sodium 2,000 mg/ (Dextrose) 50 mls @ 100 mls/hr IV DAILY@06 [facility]; Protocol Stop: 01/04/20 05:59 Last Infusion: 12/28/19 06:11 Dose: Infused Documented by: Influenza Virus Vaccine (Influenza Vaccine High Dose 65+ 0.5 Ml Syr) 0.5 ml IM .ONCE ONE Stop: 01/02/20 12:28 Ipratropium [place] (Ipratropium [place] Hfa Inhaler) 1 puffs INH QDR [facility]; Protocol Stop: 01/26/20 12:29 Last Admin: 12/29/19 07:42 Dose: 1 puffs Documented by: Levalbuterol HCl (Levalbuterol Hcl 0.63 Mg/3 Ml Neb) 0.63 mg NEB Q6H PRN PRN Reason: Wheezing Stop: 01/27/20 07:02 Valsartan (Valsartan 80 Mg Tab) 80 mg PO DAILY [facility] Stop: 01/26/20 12:29 Last Admin: 12/29/19 07:44 Dose: 80 mg Documented by: (1) Pneumonia Laterality: bilateral Lung location: lower lobe of lung Pneumonia type: due to unspecified organism Qualified Code(s): J18.9 - Pneumonia, unspecified organism
--- NOTE | 2019-12-29 13:55 | Hospitalist Progress Note ---
Date of Service December 29, 2019 Assessment & Plan (1) Pneumonia: Clinical history, leukocytosis, chest x-ray consistent with pneumonia, community acquired. Did not meet criteria for SIRS / sepsis per current CMS criteria. SARS-CoV-2 PCR and influenza A/B PCR negative. Blood cultures obtained in ED. Sputum gram stain, C&S ordered- results pending. Received azithromycin and ceftriaxone in ED which were continued. Blood cultures negative. Symptoms much better. Discharge on azithromycin to complete course of therapy. (2) COPD exacerbation: Secondary to pneumonia. Bronchodilators PRN. Improved. (3) Elevated lactic acid level: Serum lactate 2.2, repeat 2.1. Has infection (pneumonia) but does not meet strict criteria for sepsis per current CMS criteria. Repeat lactate 10/ 1.3. (4) Hypertension: Amlodipine listed on admission med rec, but could not be confirmed by review of clinic records, Dr. Dominguez database, or discussion with pt's pharmacy. Continue valsartan. Follow and titrate Rx. (5) Sleep apnea: Continue CPAP. (6) Atrial flutter, paroxysmal: Paroxysmal atrial flutter with variable conduction in setting of acute illness. Asymptomatic. Lytes normal. TSH normal. Cardiology consulted. Echo showed normal atrial size, normal LV wall motion and function. [id number] = 2. Antithrombotic therapy with aspirin recommended. No recurrence. (7) DVT prophylaxis: SQ enoxaparin. Ambulate. (8) Discharge planning issues: Discharge to home. Medical follow-up with Dr. Donahue. Pulmonary Medicine follow-up with [facility]. Admission and Anticipated Discharge Date Admission Date: December 27, 2019 Subjective Recheck for pneumonia and other problems. Patient seen in their room around 1310. Doing well. No further fever or chills. Cough much better. No SOB. No further atrial flutter. No N/V/D. Ambulating. Anxious to go home. Physical Exam Constitutional: no acute distress Respiratory: no respiratory distress Auscultation: + rales (right base) Cardiovascular: Rate/Rhythm: regular rate and regular rhythm Heart Sounds: no gallop, no murmur and no cardiac rub Vessels: no JVD Extremities: no calf tenderness and no edema Gastrointestinal (Abdomen): normal bowel sounds, soft, nontender, no hepatosplenomegaly Musculoskeletal: Extremities: no cyanosis Skin: no rashes, warm and dry Psychiatric: Orientation: alert and oriented x 3 Results & Data Results & Data ([facility]) Vital Signs (Past 12 Hours) Vital Signs Temp Pulse Pulse Pulse Resp BP BP 12/29/19 12:48 36.7 C 57 L 16 165/85 H 12/29/19 08:16 71 12/29/19 07:45 63 16 12/29/19 07:28 36.9 C 60 18 170/88 H 12/29/19 03:00 36.7 C 58 L 20 157/78 H Laboratory Results 12/29/19 07:16 12/29/19 07:16 (1) Pneumonia Laterality: bilateral Lung location: lower lobe of lung Pneumonia type: due to unspecified organism Qualified Code(s): J18.9 - Pneumonia, unspecified organism
--- NOTE | 2019-12-30 07:52 | Discharge Summary ---
Date of Service Date of Admission: 12/27/19 Date of Discharge: 12/29/19 Admission HPI Per Admitting Provider 69 YO male followed by Dr. Murry in [place]. History of obstructive lung disease (asthma + COPD) and other problems as noted below. [place] well until 4 days prior to admission when he developed fever and cough. Symptoms worsened over past 24 hours. Now experiencing chills, malaise, worsening cough and dyspnea. Has some chest and left should discomfort with coughing. Tried acetaminophen and albuterol without significant improvement. No recent travel history. Drives school bus. No known COVID-19 exposure. He has had pneumococcal vaccination. He has not yet had influenza vaccination this season. Principal Diagnosis pneumonia, community acquired OTHER NEW / ACUTE DIAGNOSES paroxysmal atrial flutter Discharge Data Allergies Allergy/AdvReac Type Severity Reaction Status Date / Time No Known Allergies Allergy Unverified 12/27/19 07:12 Consultations 12/27/19 07:39 ED Decision to Admit Stat 12/28/19 08:00 Consult Cardiology Routine Hospital Course (1) Pneumonia: Presented to ED with fever, cough, SOB. Clinical history, leukocytosis, chest x-ray consistent with pneumonia, community acquired. Did not meet criteria for SIRS / sepsis per current CMS criteria. SARS-CoV-2 PCR and influenza A/B PCR negative. Blood cultures obtained in ED. Sputum gram stain, C&S ordered- results pending. Received azithromycin and ceftriaxone in ED which were continued. Blood cultures negative. Symptoms much better. Discharge on azithromycin to complete course of therapy. (2) COPD exacerbation: Secondary to pneumonia. Bronchodilators PRN. Improved. (3) Elevated lactic acid level: Serum lactate 2.2, repeat 2.1. Has infection (pneumonia) but does not meet strict criteria for sepsis per current CMS criteria. Repeat lactate 12/27 1.3. (4) Hypertension: Continue valsartan. Follow and titrate Rx. (5) Sleep apnea: Continue CPAP. (6) Atrial flutter, paroxysmal: Paroxysmal atrial flutter with variable conduction in setting of acute illness. Asymptomatic. Lytes normal. TSH normal. Cardiology consulted. Echo showed normal atrial size, normal LV wall motion and function. [id number] = 2. Antithrombotic therapy with aspirin recommended. No recurrence. No need for further evaluation or Rx. (7) Influenza vaccine needed: Influenza vaccine not yet available at [facility]. It should be offered in clinic. (8) DVT prophylaxis: Received SQ enoxaparin. (9) Discharge planning issues: Discharged to home. Medical follow-up with Dr. Donahue. Pulmonary Medicine follow-up with [facility]. Total Time Total Time Spent Total Time Spent (In Minutes): 40 Discharge Plan Discharge Items Patient Disposition: Home - Self-Care Reason For Visit: PNEUMONIA Discharge Diagnosis: pneumonia Activity: As commented below Activity Comment: gradually increase activity as tolerated Non-emergency contact: Primary Care Provider and Hospitalist Call non-emergency contact if: you have any medication questions, your symptoms worsen and your temperature is above 101 Follow-up/Referrals: Alize Donahue DO [Primary Care Provider] - (12/31/2019 12:00 PM Alize Donahue DO Pending Sale To [facility], [place] ) Diet: Heart Healthy Addtl Attending Provider Instructions: MEDICATION CHANGES: azithromycin (Zithromax) 500 mg daily for 4 more days [antibiotic for pneumonia] SUMMARY OF TEST RESULTS: Tests for COVID-19 and influenza were negative. Chest x-ray showed pneumonia. Heart monitor showed an irregular heart beat called atrial flutter. It only lasted for a short time and probably occurred because of pneumonia. Echocardiogram did not show any significant abnormalities. Potassium, magnesium, and thyroid levels were OK. Dr. Cartwright reccomended that you take aspirin 81 mg daily. OTHER INSTRUCTIONS: Seek medical attention if you have: * temperature above 101 * worsening cough, chest pain, or trouble breathing * abdominal pain, nausea, vomiting * diarrhea, dark stools or bloody stools * any unanswered questions or concerns Call 911 if symptoms are severe. Please take good care of yourself. Call if you have any questions or problems. You can reach a [facility] hospitalist on duty at [facility] 24 hours a day by calling [phone]. My cell # is [phone]. Pending Studies at Discharge: Yes Studies:: final report for sputum culture Stand-Alone Forms: My [facility], Smoking Cessation Medications and DC Order Prescriptions: New azithromycin 500 mg tablet 500 mg PO DAILY Qty: 4 RF: 0 aspirin [Adult Aspirin Regimen] 81 mg tablet,delayed release (DR/EC) 81 mg PO DAILY Qty: 30 RF: 0 Continued multivitamin Tablet 1 tab PO DAILY RF: 0 acetaminophen [Tylenol] 325 mg Tablet 325 mg PO QID PRN (Reason: Pain) RF: 0 atorvastatin 20 mg tablet 20 mg PO DAILY RF: 0 valsartan 80 mg tablet 80 mg PO DAILY RF: 0 albuterol sulfate 90 mcg/actuation HFA aerosol inhaler 2 puff INHALATION Q4H PRN (Reason: sob) RF: 0 Combivent Respimat 20-100 mcg/actuation mist 1 puff INHALATION DAILY RF: 0 Discharge Orders: Discharge Order (Routine); Ordered 12/29/19 Ordered By: Curly Quigley Admission Data Admit Date/Time: 12/27/19 08:27 Attending Provider: Curly Quigley Admit Provider: Curly Quigley Primary Care Provider: Alize Donahue Other Providers: Curly Quigley ; Ubaldo Guajardo ; Gerhard Herndon ; Bill Lo ; Kaiden Esparza ; Jovan Cartwright ; Gurmeet Sneed ; Smitha Church ; Allison Kenney ; Juan Pablo Rodriguez Other Interventions: Discharge Summary Assessment (RN) Last Done: 12/29/19 14:27
[2020-01-02] MEDS ORDERED: INFLUENZA VACCINE HIGH DOSE 65+ 0.5 ML SYR IM ONE (12:27)
[2020-01-02] MEDS ORDERED: INFLUENZA ADMINISTRATION CHARGE ONE (12:27)
== END 2019-12-29 14:55 | disposition home or self-care (01) | DRG 194 ==
LOC: ED 05:36 → 2N 08:27